=== PATIENT | male | born 1990 | race Caucasian/White ===

== ENCOUNTER 2020-10-23 20:46 | Emergency (ER) | payer OTHER ==
[2020-10-23 20:52] VITALS: BP 145/83; PULSE 99; TEMP 98.5; BMI 29.8
[2020-10-23] MEDS ORDERED: morphine CARPU-JECT 4 MG/1 ML DISP.SYRIN IVPUSH ONE (21:52)
[2020-10-23] MEDS ORDERED: morphine SULFATE 4 MG/ML VIAL ONE (21:57)
[2020-10-23] MEDS ORDERED: KETOROLAC TROMETHAMINE 15 MG/ML VIAL IVPUSH ONE (22:30)
[2020-10-23] MEDS ORDERED: KETOROLAC TROMETHAMINE 15 MG/ML VIAL ONE (22:40)
== END 2020-10-23 23:10 | disposition home or self-care (01) ==
LOC: JER 20:46
PROC: 3E0333Z Introduction of Anti-inflammatory into Peripheral Vein, Percutaneous Approach (ICD-10-PCS; principal; 2020-10-23)
PROC: 3E033NZ Introduction of Analgesics, Hypnotics, Sedatives into Peripheral Vein, Percutaneous Approach (ICD-10-PCS; 2020-10-23)
DX: R07.89 Other chest pain (principal); M79.605 Pain in left leg
CPT/HCPCS: 71046-TC-FY; 71111-TC-FY; 99284-25